=== PATIENT | male | born 1955 | race Caucasian/White ===

== ENCOUNTER 2017-10-28 09:27 | Emergency (ER) | payer OTHER ==
[~2017-10-28] VITALS: Ht 177.8 cm; Wt 72.6 kg
[2017-10-28 09:32] VITALS: Ht 177.8 cm; Wt 72.6 kg
[2017-10-28 10:44] VITALS: BP 115/70
== END 2017-10-28 10:57 | disposition short-term general hospital (02) ==
LOC: ED 09:27
DX: S62.636A Displaced fracture of distal phalanx of right little finger, initial encounter for closed fracture (principal); W31.89XA Contact with other specified machinery, initial encounter; Y93.89 Activity, other specified; Y99.8 Other external cause status; Y92.89 Other specified places as the place of occurrence of the external cause
CPT/HCPCS: 90715; J2001; J3010